=== PATIENT | male | born 1945 | race Caucasian/White ===

== ENCOUNTER → 2021-06-06 | Outpatient (CLI) | payer OTHER ==
[2021-06-06 16:36] LABS: HEMOGLOBIN 15.6 gm/dl (14.0-17.5); RED BLOOD COUNT 4.95 M/UL (4.20-5.50)
[2021-06-06 17:00] LABS: BUN/CREATININE RATIO 13 (0-10)
== END ==
LOC: LAB 16:12
PROVIDERS: Emergency Medicine
DX: M79.671 Pain in right foot (principal); R60.0 Localized edema; Z86.718 Personal history of other venous thrombosis and embolism
CPT/HCPCS: 36415; 80053; 84550; 85025; 85379; 86140